=== PATIENT | female | born 1930 | race Caucasian/White ===

== ENCOUNTER → 2016-08-14 | Outpatient (CLI) | payer MEDICARE, OTHER ==
[~2016-08-14] MED LIST: ADVAIR INH; GABA-826 PO; HYDR1TAB12 PO; IPRA4AER INH; PREG25CA PO
== END | disposition home or self-care (01) ==
LOC: RAD 16:20
PROVIDERS: ATTEND Family Medicine
DX: R22.41 Localized swelling, mass and lump, right lower limb (principal)

== ENCOUNTER → 2017-03-27 | Outpatient (CLI) | payer MEDICARE, OTHER | LOC: RAD 12:00 | PROVIDERS: ATTEND Family Medicine | DX: M21.379 Foot drop, unspecified foot (principal); M41.86 Other forms of scoliosis, lumbar region; M51.36 Other intervertebral disc degeneration, lumbar region | CPT/HCPCS: 72148 ==

== ENCOUNTER → 2017-09-04 | Outpatient (CLI) | payer MEDICARE, OTHER | END | disposition home or self-care (01) | LOC: CFH 14:15 | PROVIDERS: ATTEND Physician Assistant | DX: M50.023 Cervical disc disorder at C6-C7 level with myelopathy (principal); D18.09 Hemangioma of other sites; M43.8X4 Other specified deforming dorsopathies, thoracic region; M51.34 Other intervertebral disc degeneration, thoracic region; M47.892 Other spondylosis, cervical region | CPT/HCPCS: 72125; 72146 ==

== ENCOUNTER 2017-10-30 09:55 | Inpatient (IN) | payer MEDICARE, OTHER ==
[~2017-10-30] VITALS: Ht 157.5 cm; Wt 65.1 kg
[2017-10-30] MEDS ORDERED: SODIUM CHLORIDE FLUSH 10ML SYR IVF ONE (10:30)
[2017-10-30] MEDS ORDERED: ACETAMINOPHEN 325 MG TABLET PO ONE (10:30)
[2017-10-30] MEDS ORDERED: CEFTRIAXONE 1,000 MG in SODIUM CHLORIDE 0.9% 50 ML IVPB ONE (10:30)
[2017-10-30] MEDS ORDERED: ACETAMINOPHEN 650 MG SUPP ONE ×2 (10:37→17:16)
[2017-10-30] MEDS ORDERED: CEFTRIAXONE PMX 1GM/50ML 50 ML ONE (10:38)
[2017-10-30 10:56] LABS: BASOPHILS # (AUTO) 0.01 x10^3/uL (0-0.1); BASOPHILS % (AUTO) 0 % (0-1); EOSINOPHILS # (AUTO) 0.01 x10^3/uL (0-0.4); EOSINOPHILS % (AUTO) 0 % (1-7); LYMPHOCYTES # (AUTO) 0.28 x10^3/uL (1-3.4); LYMPHOCYTES % (AUTO) 3 % (22-44); MD NO; MEAN CORPUSCULAR HEMOGLOBIN 30.9 pg (27.0-34.8); MEAN CORPUSCULAR HGB CONC 33.3 g/dL (32.4-35.8); MEAN CORPUSCULAR VOLUME 92.8 fL (80-100); MEAN PLATELET VOLUME 7.3 fL (7.4-10.4); MONOCYTES # (AUTO) 0.79 x10^3/uL (0.2-0.8); MONOCYTES % (AUTO) 9 % (2-9); NEUTROPHILS # (AUTO) 7.49 x10^3/uL (1.8-6.8); NEUTROPHILS % (AUTO) 87 % (42-75); PLATELET COUNT 224 x10^3/uL (130-400); RED BLOOD COUNT 4.43 x10^6/uL (3.82-5.3); RED CELL DISTRIBUTION WIDTH 14.4 % (9.6-15.2)
[2017-10-30] MEDS ORDERED: SODIUM CHLORIDE 0.9% 1,000ML IVBOLUS ONE (11:00)
[2017-10-30 11:05] LABS: ALANINE AMINOTRANSFERASE 17 U/L (12-78); ALBUMIN 3.1 g/dL (3.4-5.0); ANION GAP 7 mmol/L (5-15); CALCIUM 7.7 mg/dL (8.5-10.1); CHLORIDE 110 mmol/L (98-107); CREATININE 0.93 mg/dL (0.55-1.02)
[2017-10-30 11:07] LABS: ALKALINE PHOSPHATASE 54 U/L (45-117); BILIRUBIN,TOTAL 0.4 mg/dL (0.2-1.0); TOTAL PROTEIN 6.2 g/dL (6.4-8.2)
[2017-10-30] MEDS ORDERED: ASPI81TA50 PO (11:13)
[2017-10-30] MEDS ORDERED: IBUP-1222 PO (11:13)
[2017-10-30] MEDS ORDERED: ACETAMINOPHEN 650 MG SUPP PR PRN (11:30)
[2017-10-30] MEDS ORDERED: IBUPROFEN 600 MG TABLET PO PRN (12:30)
[2017-10-30] MEDS ORDERED: VANCOMYCIN PER PHARMACY MC PRN (12:30)
[2017-10-30] MEDS ORDERED: GUAIFENESIN/DM 200-20MG, 10ML UDC PO PRN (12:30)
[2017-10-30] MEDS ORDERED: ACETAMINOPHEN 325 MG TABLET PO PRN (12:30)
[2017-10-30] MEDS ORDERED: PROMETHAZINE 25 MG/ML, 1ML IM PRN (12:30)
[2017-10-30] MEDS ORDERED: ONDANSETRON ODT 4 MG PO PRN (12:30)
[2017-10-30] MEDS ORDERED: ALBUTEROL SULFATE 2.5 MG/3 ML ONE (13:49)
[2017-10-30 14:53] VITALS: BP 113/64
[2017-10-30] MEDS: HEPARIN 5,000 UNITS/ML, 1ML SQ SCH (15:04)
[2017-10-30] MEDS: SODIUM CHLORIDE 0.9% 1,000 ML IV SCH (15:04)
[2017-10-30 15:10] VITALS: BP 113/64
[2017-10-30] MEDS: PIPERACILLIN/TAZO/PMX 3.375GM 50 ML IV SCH ×2 (15:26→21:53)
[2017-10-30] MEDS ORDERED: PHARMACOKINETIC CONSULTATION MC ONE (15:30)
[2017-10-30] MEDS ORDERED: ALBUTEROL/IPRATROPIUM 2.5MG/0.5MG, 3 ML NPPB SCH (15:30)
[2017-10-30] MEDS ORDERED: PHARMACOKINETIC MONITORING MC PRN (15:30)
[2017-10-30] MEDS ORDERED: VANCOMYCIN PMX 1GM/200ML 200 ML IVPB SCH (16:00)
[2017-10-30] MEDS ORDERED: ACETAMINOPHEN 650 MG SUPP PR ONE (17:30)
[2017-10-30 18:52] VITALS: BP 119/64
[2017-10-30] MEDS: ALBUTEROL/IPRATROPIUM 2.5MG/0.5MG, 3 ML NPPB SCH (20:00)
[2017-10-31 02:00] VITALS: BP 115/74
[2017-10-31] MEDS: PIPERACILLIN/TAZO/PMX 3.375GM 50 ML IV SCH ×4 (03:32→21:11)
[2017-10-31] MEDS: HEPARIN 5,000 UNITS/ML, 1ML SQ SCH ×2 (03:33→17:52)
[2017-10-31 05:42] LABS: BASOPHILS # (AUTO) 0.01 x10^3/uL (0-0.1); BASOPHILS % (AUTO) 0 % (0-1); EOSINOPHILS # (AUTO) 0.01 x10^3/uL (0-0.4); EOSINOPHILS % (AUTO) 0 % (1-7); LYMPHOCYTES % (AUTO) 8 % (22-44); MD NO; MEAN CORPUSCULAR HEMOGLOBIN 30.8 pg (27.0-34.8); MEAN CORPUSCULAR HGB CONC 32.6 g/dL (32.4-35.8); MEAN CORPUSCULAR VOLUME 94.7 fL (80-100); MEAN PLATELET VOLUME 7.5 fL (7.4-10.4); MONOCYTES # (AUTO) 0.84 x10^3/uL (0.2-0.8); MONOCYTES % (AUTO) 6 % (2-9); NEUTROPHILS # (AUTO) 11.35 x10^3/uL (1.8-6.8); NEUTROPHILS % (AUTO) 86 % (42-75); PLATELET COUNT 187 x10^3/uL (130-400); RED BLOOD COUNT 4.66 x10^6/uL (3.82-5.3); RED CELL DISTRIBUTION WIDTH 14.7 % (9.6-15.2)
[2017-10-31 05:47] LABS: ANION GAP 8 mmol/L (5-15); CALCIUM 7.8 mg/dL (8.5-10.1); CHLORIDE 114 mmol/L (98-107); CREATININE 0.73 mg/dL (0.55-1.02)
[2017-10-31] MEDS: ALBUTEROL/IPRATROPIUM 2.5MG/0.5MG, 3 ML NPPB SCH ×4 (07:00→20:00)
[2017-10-31 08:05] VITALS: BP 124/70
[2017-10-31] MEDS: SODIUM CHLORIDE 0.9% 1,000 ML IV SCH (09:00)
[2017-10-31] MEDS: ASPIRIN 81 MG TABLET EC PO SCH (09:57)
[2017-10-31 15:50] VITALS: BP 125/74
[2017-10-31 19:30] VITALS: BP 131/77
[2017-11-01 01:25] VITALS: BP 129/64
[2017-11-01] MEDS: SODIUM CHLORIDE 0.9% 1,000 ML IV SCH (01:40)
[2017-11-01] MEDS: PIPERACILLIN/TAZO/PMX 3.375GM 50 ML IV SCH ×2 (04:56→12:23)
[2017-11-01] MEDS: HEPARIN 5,000 UNITS/ML, 1ML SQ SCH (05:08)
[2017-11-01 07:45] VITALS: BP 129/81
[2017-11-01] MEDS: ALBUTEROL/IPRATROPIUM 2.5MG/0.5MG, 3 ML NPPB SCH ×2 (08:07→11:35)
[2017-11-01 08:45] LABS: MEAN CORPUSCULAR HEMOGLOBIN 30.6 pg (27.0-34.8); MEAN CORPUSCULAR HGB CONC 32.8 g/dL (32.4-35.8); MEAN CORPUSCULAR VOLUME 93.3 fL (80-100); MEAN PLATELET VOLUME 7.4 fL (7.4-10.4); PLATELET COUNT 193 x10^3/uL (130-400); RED BLOOD COUNT 4.38 x10^6/uL (3.82-5.3); RED CELL DISTRIBUTION WIDTH 14.4 % (9.6-15.2)
[2017-11-01 09:00] LABS: BASOPHILS # (AUTO) 0.05 x10^3/uL (0-0.1); BASOPHILS % (AUTO) 0 % (0-1); EOSINOPHILS % (AUTO) 1 % (1-7); LYMPHOCYTES # (AUTO) 1.13 x10^3/uL (1-3.4); LYMPHOCYTES % (AUTO) 9 % (22-44); MD SCAN; MONOCYTES % (AUTO) 6 % (2-9); NEUTROPHILS # (AUTO) 10.99 x10^3/uL (1.8-6.8); NEUTROPHILS % (AUTO) 84 % (42-75)
[2017-11-01] MEDS: ASPIRIN 81 MG TABLET EC PO SCH (09:34)
[2017-11-01] MEDS ORDERED: LACT1CAP35 PO (10:53)
[2017-11-01] MEDS ORDERED: AMOX1TAB64 PO (10:53)
[2017-11-01 13:17] VITALS: BP 132/72
== END 2017-11-01 14:35 | disposition still patient (30) | DRG 871 ==
LOC: ED 10:48 → EDIP 11:50 → 4WST 15:01
PROVIDERS: ADMIT Internal Medicine; ATTEND Internal Medicine
DX: A41.9 Sepsis, unspecified organism (principal); J69.0 Pneumonitis due to inhalation of food and vomit; J96.21 Acute and chronic respiratory failure with hypoxia; J45.909 Unspecified asthma, uncomplicated; M19.90 Unspecified osteoarthritis, unspecified site; R65.20 Severe sepsis without septic shock; Z66 Do not resuscitate; Z88.2 Allergy status to sulfonamides
CPT/HCPCS: 36415; 36600; 71045; 80048; 80053; 82308; 82803; 83605; 85025; 87040; 93005; 94640; 96365; 99291; G0378; J0696; J1644; J2543; J3370; J7620; J7030

== ENCOUNTER → 2017-11-22 | Outpatient (CLI) | payer MEDICARE, OTHER ==
[~2017-11-22] MED LIST changes: +AMOX1TAB64 PO; +ASPI81TA50 PO; +IBUP-1222 PO; +LACT1CAP35 PO
[2017-11-22 08:46] LABS: BASOPHILS # (AUTO) 0.07 x10^3/uL (0-0.1); BASOPHILS % (AUTO) 1 % (0-1); EOSINOPHILS # (AUTO) 0.51 x10^3/uL (0-0.4); EOSINOPHILS % (AUTO) 7 % (1-7); LYMPHOCYTES # (AUTO) 1.17 x10^3/uL (1-3.4); LYMPHOCYTES % (AUTO) 16 % (22-44); MD NO; MEAN CORPUSCULAR HEMOGLOBIN 30.7 pg (27.0-34.8); MEAN CORPUSCULAR HGB CONC 33.3 g/dL (32.4-35.8); MEAN CORPUSCULAR VOLUME 92.1 fL (80-100); MEAN PLATELET VOLUME 6.9 fL (7.4-10.4); MONOCYTES # (AUTO) 0.65 x10^3/uL (0.2-0.8); MONOCYTES % (AUTO) 9 % (2-9); NEUTROPHILS # (AUTO) 5.06 x10^3/uL (1.8-6.8); NEUTROPHILS % (AUTO) 68 % (42-75); PLATELET COUNT 310 x10^3/uL (130-400); RED CELL DISTRIBUTION WIDTH 14.1 % (9.6-15.2)
[2017-11-22 08:52] LABS: ALANINE AMINOTRANSFERASE 18 U/L (12-78); ALBUMIN 3.4 g/dL (3.4-5.0); ANION GAP 9 mmol/L (5-15); CALCIUM 9.1 mg/dL (8.5-10.1); CHLORIDE 95 mmol/L (98-107); CHOLESTEROL, TOTAL 242 mg/dL (140-239); CREATININE 0.77 mg/dL (0.55-1.02); TRIGLYCERIDES 58 mg/dL (50-200); VLDL CHOLESTEROL 12 mg/dL (0-25)
[2017-11-22 08:54] LABS: ALKALINE PHOSPHATASE 71 U/L (45-117); BILIRUBIN,TOTAL 0.6 mg/dL (0.2-1.0); HDL CHOL % 34 % (28-40); HDL CHOLESTEROL (DIRECT) 82 mg/dL (40-60); LDL CHOLESTEROL,CALCULATED 148 mg/dL (54-169); LDL/HDL RATIO 1.8 (0.5-3.0); TOTAL PROTEIN 7.1 g/dL (6.4-8.2)
== END | disposition home or self-care (01) ==
LOC: LAB 08:22
PROVIDERS: ATTEND Family Medicine
DX: I10 Essential (primary) hypertension (principal); D72.829 Elevated white blood cell count, unspecified
CPT/HCPCS: 36415; 80053; 80061; 82043; 85025

== ENCOUNTER 2018-07-17 10:41 | Outpatient (CLI) | payer MEDICARE, OTHER ==
[~2018-07-17 10:41] MED LIST changes: +ALBU18HF INH; +CALCIUM PO; +CEFD300C37 PO; +CHOL100011 PO; +DENO60DI IM; +DOXY100T10 PO; -HYDR1TAB12 PO; +HYDR1TAB13 PO; +TRAZ-137 PO
== END 2018-07-17 23:59 | disposition home or self-care (01) ==
LOC: RAD 10:41
PROVIDERS: ATTEND Family Medicine
DX: J44.9 Chronic obstructive pulmonary disease, unspecified (principal); J18.9 Pneumonia, unspecified organism
CPT/HCPCS: 71046

== ENCOUNTER 2019-01-20 19:19 | Inpatient (IN) | payer MEDICARE, OTHER ==
[~2019-01-20] VITALS: Ht 157.5 cm; Wt 75.7 kg
[~2019-01-20 19:19] MED LIST changes: -DOXY100T10 PO; +DOXY100T23 PO
[2019-01-20] MEDS ORDERED: MAGNESIUM SULFATE PMX 2GM/50ML 50 ML IVPB ONE (20:00)
[2019-01-20] MEDS ORDERED: AZITHROMYCIN 500 MG in SODIUM CHLORIDE 0.9% 250 ML IVPB ONE (20:00)
[2019-01-20] MEDS ORDERED: CEFTRIAXONE PMX 1GM/50ML 50 ML IVPB ONE (20:00)
[2019-01-20] MEDS ORDERED: ALBUTEROL/IPRATROPIUM 2.5MG/0.5MG, 3 ML ONE (20:09)
[2019-01-20] MEDS: ALBUTEROL/IPRATROPIUM 2.5MG/0.5MG, 3 ML NPPB SCH (20:15)
[2019-01-20] MEDS ORDERED: CEFTRIAXONE PMX 1GM/50ML 50 ML ONE (20:33)
[2019-01-20] MEDS ORDERED: MAGNESIUM SULFATE PMX 2GM/50ML 50 ML ONE (20:33)
[2019-01-20 20:42] LABS: MEAN CORPUSCULAR HEMOGLOBIN 31.1 pg (27.0-34.8); MEAN CORPUSCULAR HGB CONC 32.3 g/dL (32.4-35.8); MEAN CORPUSCULAR VOLUME 96.5 fL (80-100); PLATELET COUNT 230 x10^3/uL (130-400); RED BLOOD COUNT 4.57 x10^6/uL (3.82-5.3); RED CELL DISTRIBUTION WIDTH 14.9 % (9.6-15.2)
--- NOTE | 2019-01-20 20:49 | NUR ---
Patient transferred from [facility] to 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 Attached to cardiac leads, blood pressure cuff, and pulsatile oxygen sensor. Vitals within normal limits, SpO2 at 97% on 4L nasal cannula. Patient has caregiver at bedside assisting in providing information. Patient is alert, oriented, and answers questions clearly and concisely. Patient has a coarse cough and reports feeling short of breath. Patient uses accessory muscles in neck for breathing, intermittently. Orders already placed by provider, guitar technician to bedside, and chest xray completed while RN collected peripheral intravenous catherization equipment. RN to bedside, with phlebotomy. Started peripheral IV access per protocol. Blood cultures collected x2 while RN collected medications including iv antibiotics. Patient educated on the need for iv antibiotics while physician was at bedside assessing patient.
[2019-01-20 20:54] LABS: ALBUMIN 3.3 g/dL (3.4-5.0); ANION GAP 5 mmol/L (5-15); CALCIUM 9.4 mg/dL (8.5-10.1); CHLORIDE 107 mmol/L (98-107); CREATININE 0.74 mg/dL (0.55-1.02)
[2019-01-20 20:56] LABS: BASOPHILS # (AUTO) 0.06 x10^3/uL (0-0.1); BASOPHILS % (AUTO) 0 % (0-1); EOSINOPHILS # (AUTO) 0.33 x10^3/uL (0-0.4); EOSINOPHILS % (AUTO) 2 % (1-7); LYMPHOCYTES # (AUTO) 0.75 x10^3/uL (1-3.4); LYMPHOCYTES % (AUTO) 4 % (22-44); MD SCAN; MONOCYTES # (AUTO) 0.43 x10^3/uL (0.2-0.8); MONOCYTES % (AUTO) 2 % (2-9); NEUTROPHILS # (AUTO) 16.74 x10^3/uL (1.8-6.8); NEUTROPHILS % (AUTO) 91 % (42-75)
[2019-01-20 20:58] LABS: TROPONIN I < 0.015 ng/mL (0.000-0.045)
--- NOTE | 2019-01-20 21:07 | NUR ---
Intravenous antibiotics initiated on patient (see electronic medication administration record) and steroidal antiinflammatories taken. Patient agreeable to medications in emergency room but expressing concerns over admission. Educated patient that it takes tests for the provider to make an educated decision. Patient agreeable to wait. Awaiting labs and chest xray read by radiology
[2019-01-20 21:23] LABS: RAPID INFLUENZA A Negative (Negative); RAPID INFLUENZA B Negative (Negative)
[2019-01-20] MEDS ORDERED: CEFTRIAXONE PMX 1GM/50ML 50 ML IV ONE (22:30)
[2019-01-20 22:32] VITALS: BP 111/66
[2019-01-20] MEDS ORDERED: hydrALAzine 20 MG/ML, 1ML IVPush PRN (23:00)
[2019-01-20] MEDS ORDERED: DOCUSATE 100 MG CAPSULE PO PRN (23:00)
[2019-01-20] MEDS ORDERED: POLYETHYLENE GLYCOL 17 GM PACKET PO PRN (23:00)
[2019-01-20] MEDS ORDERED: ONDANSETRON ODT 4 MG PO PRN (23:00)
[2019-01-20] MEDS ORDERED: ONDANSETRON 2MG/ML, 2ML IVPush PRN (23:00)
[2019-01-20] MEDS ORDERED: morphine SULFATE 10 MG/ML, 1ML IVPush PRN (23:00)
[2019-01-20] MEDS ORDERED: PROMETHAZINE 25 MG/ML, 1ML IM PRN (23:00)
[2019-01-20] MEDS ORDERED: BISACODYL 10 MG SUPP PR PRN (23:00)
[2019-01-20 23:12] LABS: HEMOGLOBIN A1C 6.3 % (4.2-6.3)
[2019-01-20 23:14] LABS: FREE T4 (FREE THYROXINE) 1.02 ng/dL (0.76-1.46)
[2019-01-20] MEDS: GUAIFENESIN ER 600 MG TABLET PO SCH (23:59)
[2019-01-21] MEDS: ENOXAPARIN 40 MG/0.4 ML SQ SCH
[2019-01-21 01:06] VITALS: BP 159/97
[2019-01-21] MEDS: ALBUTEROL SULFATE 2.5 MG/3 ML NPPB PRN ×3 (02:55→19:27)
[2019-01-21 02:58] LABS: MICROSCOPIC AUTO
[2019-01-21] MEDS: TRAZODONE 100MG TABLET PO PRN (03:06)
[2019-01-21] MEDS: ACETAMINOPHEN 325 MG TABLET PO PRN (03:07)
[2019-01-21 03:10] LABS: CULTURE INDICATED? YES
[2019-01-21] MEDS: methylPREDNISolone SOD SUCC 125 MG/2 ML IVPush SCH ×4 (05:36→17:04)
[2019-01-21 06:19] LABS: CHLORIDE 110 mmol/L (98-107)
[2019-01-21 06:21] LABS: MEAN CORPUSCULAR HEMOGLOBIN 30.9 pg (27.0-34.8); MEAN CORPUSCULAR HGB CONC 32.1 g/dL (32.4-35.8); MEAN CORPUSCULAR VOLUME 96.4 fL (80-100); MEAN PLATELET VOLUME 8.3 fL (7.4-10.4); PLATELET COUNT 212 x10^3/uL (130-400); RED BLOOD COUNT 4.53 x10^6/uL (3.82-5.3); RED CELL DISTRIBUTION WIDTH 14.8 % (9.6-15.2)
[2019-01-21 06:28] LABS: ALANINE AMINOTRANSFERASE 26 U/L (12-78); ALKALINE PHOSPHATASE 70 U/L (45-117); ANION GAP 6 mmol/L (5-15); BILIRUBIN,TOTAL 0.8 mg/dL (0.2-1.0); CALCIUM 8.9 mg/dL (8.5-10.1); CHOL/HDL RATIO 3.1; CHOLESTEROL, TOTAL 209 mg/dL (140-239); CREATININE 0.72 mg/dL (0.55-1.02); HDL CHOL % 32 % (28-40); HDL CHOLESTEROL (DIRECT) 67 mg/dL (40-60); LDL CHOLESTEROL,CALCULATED 133 mg/dL (54-169); TOTAL PROTEIN 6.7 g/dL (6.4-8.2); TRIGLYCERIDES 46 mg/dL (50-200); VLDL CHOLESTEROL 9 mg/dL (0-25)
[2019-01-21 06:57] LABS: MD YES
[2019-01-21 07:14] LABS: BANDS%(MANUAL) 12 % (0-7); LYMPH#(MANUAL) 0.45 x10^3/uL (1-3.4); LYMPHS% (MANUAL) 2 % (22-44); MONOS#(MANUAL) 1.13 x10^3/uL (0.3-2.7); MONOS% (MANUAL) 5 % (2-9); SEG#(MANUAL) 18.23 x10^3/uL (1.8-6.8); SEGS% (MANUAL) 81 % (42-75)
[2019-01-21 07:15] LABS: <PLATELET ESTIMATE> ADEQUATE; <PLT MORPHOLOGY> NORMAL PLT MORPH; <RBC MORPHOLOGY> NORMAL
[2019-01-21 07:35] LABS: BASOPHILS % (AUTO) 0 % (0-1); EOSINOPHILS % (AUTO) 0 % (1-7); LYMPHOCYTES # (AUTO) 0.25 x10^3/uL (1-3.4); LYMPHOCYTES % (AUTO) 1 % (22-44); MONOCYTES # (AUTO) 0.99 x10^3/uL (0.2-0.8); MONOCYTES % (AUTO) 4 % (2-9); NEUTROPHILS # (AUTO) 21.22 x10^3/uL (1.8-6.8); NEUTROPHILS % (AUTO) 95 % (42-75)
[2019-01-21 08:00] VITALS: BP 107/56
[2019-01-21] MEDS ORDERED: DOXYCYCLINE 100MG TABLET PO SCH (09:00)
[2019-01-21] MEDS: GUAIFENESIN ER 600 MG TABLET PO SCH ×2 (09:14→21:00)
[2019-01-21] MEDS ORDERED: SODIUM CHLORIDE 0.9% 1,000 ML IV SCH (11:00)
[2019-01-21 12:52] VITALS: BP 110/69
[2019-01-21] MEDS ORDERED: OMNIPAQUE 350 MG/ML, 100ML BOTTLE ONE (15:33)
[2019-01-21] MEDS ORDERED: PIPERACILLIN/TAZO/PMX 3.375GM 50 ML IV SCH (16:00)
[2019-01-21] MEDS ORDERED: VANCOMYCIN PER PHARMACY MC PRN (16:00)
[2019-01-21] MEDS ORDERED: VANCOMYCIN 1,000 MG in SODIUM CHLORIDE 0.9% 100 ML IV SCH (17:00)
[2019-01-21] MEDS ORDERED: PHARMACOKINETIC CONSULTATION MC ONE (17:00)
[2019-01-21] MEDS ORDERED: PHARMACOKINETIC MONITORING MC PRN (17:00)
[2019-01-21] MEDS: PIPERACILLIN/TAZO/PMX 2.25GM 50 ML IVPB SCH ×2 (17:04→23:34)
[2019-01-21 18:14] VITALS: BP 92/57
[2019-01-21] MEDS: VANCOMYCIN PMX 1GM/200ML 200 ML IV SCH (18:46)
[2019-01-21] MEDS ORDERED: CEFTRIAXONE PMX 2GM/50ML 50 ML IV SCH (20:00)
[2019-01-21 20:24] VITALS: BP 100/47
[2019-01-21] MEDS ORDERED: FENTANYL PF 100 MCG/2ML ONE (22:33)
[2019-01-21] MEDS ORDERED: PROPOFOL 100 ML IV PRN (22:49)
[2019-01-21] MEDS: ALBUTEROL/IPRATROPIUM 2.5MG/0.5MG, 3 ML INLINE SCH (23:00)
[2019-01-21] MEDS ORDERED: DEXTROSE 4 GM TAB.CHEW PO PRN (23:00)
[2019-01-21] MEDS ORDERED: ROCURONIUM 10MG/ML,5ML ONE (23:00)
[2019-01-21] MEDS ORDERED: LIDOCAINE-MPF 1%, 2ML ENDO PRN (23:00)
[2019-01-21] MEDS ORDERED: DEXTROSE 50%, 50ML SYRINGE IVPush PRN (23:00)
[2019-01-21] MEDS ORDERED: ETOMIDATE 20 MG/10 ML ONE (23:00)
[2019-01-21] MEDS ORDERED: GLUCAGON 1 MG IM PRN (23:00)
[2019-01-21] MEDS ORDERED: BISACODYL 10 MG SUPP PR PRN (23:00)
[2019-01-21] MEDS ORDERED: LACTULOSE 20 GM/30 ML UDC NG PRN (23:00)
[2019-01-21] MEDS ORDERED: PROPOFOL 10 MG/ML, 100ML IV ONE (23:00)
[2019-01-21] MEDS ORDERED: FENTANYL PF 100 MCG/2ML IVPush PRN (23:00)
[2019-01-21] MEDS ORDERED: SODIUM CHLORIDE 0.9% 1,000ML IV SCH (23:00)
[2019-01-21] MEDS ORDERED: SENNA/DOCUSATE TABLET NG PRN (23:00)
[2019-01-21] MEDS ORDERED: PHARMACY MAY ADJ FOR RENAL FX MC SCH (23:00)
[2019-01-21] MEDS ORDERED: SENNA 176 MG/5 ML ORAL SOL NG PRN (23:00)
[2019-01-21] MEDS ORDERED: AMIODARONE 150 MG in DEXTROSE 5% 100 ML IV ONE (23:30)
[2019-01-21] MEDS ORDERED: FILTER 0.22 MICRON IV PRN (23:30)
[2019-01-21] MEDS ORDERED: AMIODARONE 900 MG in DEXTROSE 5% 482 ML IV PRN (23:30)
[2019-01-22] MEDS: ENOXAPARIN 40 MG/0.4 ML SQ SCH ×2 (00:01→23:57)
[2019-01-22] MEDS: methylPREDNISolone SOD SUCC 125 MG/2 ML IVPush SCH ×5 (00:02→23:56)
[2019-01-22] MEDS ORDERED: MIDAZOLAM 1 MG/ML, 5ML IVPush PRN (01:30)
[2019-01-22] MEDS ORDERED: SODIUM CHLORIDE 0.9%, 500ML IVBOLUS ONE ×3 (01:30→18:30)
[2019-01-22] MEDS: ALBUTEROL/IPRATROPIUM 2.5MG/0.5MG, 3 ML INLINE SCH ×6 (02:45→22:17)
[2019-01-22] MEDS ORDERED: METOPROLOL 1 MG/ML, 5ML IVPush PRN ×2 (04:00)
[2019-01-22] MEDS: PIPERACILLIN/TAZO/PMX 2.25GM 50 ML IVPB SCH ×3 (04:20→18:11)
[2019-01-22] MEDS ORDERED: NOREPINEPHRINE 1 MG/ML, 4ML ONE (04:41)
[2019-01-22] MEDS: NOREPINEPHRINE 4 MG in SODIUM CHLORIDE 0.9% 246 ML IV PRN ×2 (04:45→22:02)
[2019-01-22 05:11] LABS: MEAN CORPUSCULAR HEMOGLOBIN 30.7 pg (27.0-34.8); MEAN CORPUSCULAR HGB CONC 31.7 g/dL (32.4-35.8); MEAN CORPUSCULAR VOLUME 96.6 fL (80-100); MEAN PLATELET VOLUME 8.5 fL (7.4-10.4); PLATELET COUNT 183 x10^3/uL (130-400); RED BLOOD COUNT 4.15 x10^6/uL (3.82-5.3); RED CELL DISTRIBUTION WIDTH 15.1 % (9.6-15.2)
[2019-01-22 05:15] LABS: ALANINE AMINOTRANSFERASE 22 U/L (12-78); ALBUMIN 2.1 g/dL (3.4-5.0); ANION GAP 10 mmol/L (5-15); CALCIUM 7.8 mg/dL (8.5-10.1); CHLORIDE 114 mmol/L (98-107); CREATININE 1.18 mg/dL (0.55-1.02)
[2019-01-22 05:20] LABS: ALKALINE PHOSPHATASE 36 U/L (45-117); BILIRUBIN,TOTAL 0.6 mg/dL (0.2-1.0); TOTAL PROTEIN 5.6 g/dL (6.4-8.2); TROPONIN I 0.018 ng/mL (0.000-0.045)
[2019-01-22 05:50] LABS: MD YES
[2019-01-22 05:55] LABS: <PLATELET ESTIMATE> ADEQUATE; <PLT MORPHOLOGY> NORMAL PLT MORPH; <RBC MORPHOLOGY> NORMAL; BAND#(MANUAL) 6.64 x10^3/uL; BANDS%(MANUAL) 44 % (0-7); LYMPH#(MANUAL) 1.36 x10^3/uL (1-3.4); LYMPHS% (MANUAL) 9 % (22-44); METAMYELOCYTES# (MANUAL) 1.36 x10^3/uL (0-0); METAMYELOCYTES% (MANUAL) 9 % (0-1); MONOS#(MANUAL) 0.91 x10^3/uL (0.3-2.7); MONOS% (MANUAL) 6 % (2-9); PMNS WITH VACUOLES 1+; SEG#(MANUAL) 4.83 x10^3/uL (1.8-6.8); SEGS% (MANUAL) 32 % (42-75)
[2019-01-22] MEDS: INSULIN LISPRO 100 UNITS/ML, PEN SQ-INSULIN SCH ×4 (06:47→20:56)
--- NOTE | 2019-01-22 11:59 | NUR ---
TF GOAL if needed: w/ propofol: PROMOTE @ 50ml/hr off propofol: 55ml/hr
[2019-01-22] MEDS: GUAIFENESIN ER 600 MG TABLET PO SCH ×2 (12:54→20:56)
[2019-01-22] MEDS: SODIUM CHLORIDE FLUSH 10ML SYR IVF SCH ×2 (12:55→20:56)
[2019-01-22] MEDS: VANCOMYCIN PMX 1GM/200ML 200 ML IV SCH (16:19)
[2019-01-22] MEDS ORDERED: ALBUMIN HUMAN 25% 100 ML IV ONE (16:30)
[2019-01-22] MEDS ORDERED: ALBUMIN HUMAN 25% 200 ML IV ONE (16:30)
[2019-01-23] MEDS ORDERED: SODIUM CHLORIDE 0.9%, 500ML IVBOLUS ONE (01:00)
[2019-01-23] MEDS: PIPERACILLIN/TAZO/PMX 2.25GM 50 ML IVPB SCH ×4 (01:32→19:38)
[2019-01-23] MEDS: ALBUTEROL/IPRATROPIUM 2.5MG/0.5MG, 3 ML INLINE SCH ×3 (02:20→11:00)
[2019-01-23 06:00] LABS: ANION GAP 7 mmol/L (5-15); CALCIUM 8.7 mg/dL (8.5-10.1); CHLORIDE 115 mmol/L (98-107)
[2019-01-23] MEDS: methylPREDNISolone SOD SUCC 125 MG/2 ML IVPush SCH (06:00)
[2019-01-23 06:02] LABS: CREATININE 0.76 mg/dL (0.55-1.02)
[2019-01-23] MEDS: INSULIN LISPRO 100 UNITS/ML, PEN SQ-INSULIN SCH ×4 (07:00→21:00)
[2019-01-23] MEDS: CIPROFLOXACIN/PMX 400MG/200ML 200 ML IV SCH ×2 (09:21→21:57)
[2019-01-23] MEDS: GUAIFENESIN ER 600 MG TABLET PO SCH ×2 (09:25→21:50)
[2019-01-23] MEDS: SODIUM CHLORIDE FLUSH 10ML SYR IVF SCH ×2 (09:25→21:50)
[2019-01-23] MEDS ORDERED: POTASSIUM CHLORIDE PMX 100 ML IV ONE (10:00)
[2019-01-23] MEDS ORDERED: ALBUTEROL/IPRATROPIUM 2.5MG/0.5MG, 3 ML NPPB PRN (14:00)
[2019-01-23] MEDS: methylPREDNISolone SOD SUCC 40 MG/ML IVPush SCH ×2 (14:10→21:50)
[2019-01-23] MEDS: ALBUTEROL/IPRATROPIUM 2.5MG/0.5MG, 3 ML NPPB SCH ×3 (15:34→19:30)
[2019-01-23] MEDS: ENOXAPARIN 40 MG/0.4 ML SQ SCH (22:09)
[2019-01-24] MEDS: PIPERACILLIN/TAZO/PMX 2.25GM 50 ML IVPB SCH ×4 (00:31→21:13)
[2019-01-24 05:34] LABS: ANION GAP 5 mmol/L (5-15); CALCIUM 9.4 mg/dL (8.5-10.1); CHLORIDE 115 mmol/L (98-107)
[2019-01-24 05:38] LABS: CREATININE 0.56 mg/dL (0.55-1.02); TRIGLYCERIDES 164 mg/dL (50-200)
[2019-01-24] MEDS: methylPREDNISolone SOD SUCC 40 MG/ML IVPush SCH ×2 (06:47→15:00)
[2019-01-24] MEDS: INSULIN LISPRO 100 UNITS/ML, PEN SQ-INSULIN SCH ×4 (07:00→21:32)
[2019-01-24] MEDS: ALBUTEROL/IPRATROPIUM 2.5MG/0.5MG, 3 ML NPPB SCH ×4 (07:47→22:00)
[2019-01-24] MEDS: ACETAMINOPHEN 325 MG TABLET PO PRN (07:58)
[2019-01-24] MEDS ORDERED: POTASSIUM CHLORIDE 10% 20 MEQ/15 ML UDC NG ONE (09:00)
[2019-01-24] MEDS: GUAIFENESIN ER 600 MG TABLET PO SCH ×2 (10:11→21:28)
[2019-01-24] MEDS: CIPROFLOXACIN/PMX 400MG/200ML 200 ML IV SCH ×2 (10:12→22:05)
[2019-01-24] MEDS: SODIUM CHLORIDE FLUSH 10ML SYR IVF SCH ×2 (10:15→21:28)
[2019-01-24] MEDS: NEUTRA PHOS K 250 MG TABLET PO SCH ×2 (15:00→21:28)
[2019-01-24 16:58] VITALS: BP 149/92
[2019-01-24 17:38] VITALS: BP 174/82
[2019-01-24 17:50] VITALS: BP 150/85
[2019-01-24] MEDS: METOPROLOL TARTRATE 25 MG TABLET PO SCH (17:58)
[2019-01-24 18:57] VITALS: BP 142/87
[2019-01-24] MEDS: TRAZODONE 100MG TABLET PO PRN (22:04)
[2019-01-24] MEDS ORDERED: DIPHENHYDRAMINE 25 MG CAPSULE PO ONE (23:25)
[2019-01-24] MEDS: ENOXAPARIN 40 MG/0.4 ML SQ SCH (23:45)
[2019-01-25] MEDS: PIPERACILLIN/TAZO/PMX 2.25GM 50 ML IVPB SCH ×4 (03:15→20:22)
[2019-01-25] MEDS: methylPREDNISolone SOD SUCC 40 MG/ML IVPush SCH ×2 (03:31→15:14)
[2019-01-25] MEDS: METOPROLOL TARTRATE 25 MG TABLET PO SCH ×2 (06:00→18:02)
[2019-01-25 06:20] LABS: MEAN CORPUSCULAR HEMOGLOBIN 30.5 pg (27.0-34.8); MEAN CORPUSCULAR HGB CONC 31.5 g/dL (32.4-35.8); MEAN CORPUSCULAR VOLUME 96.8 fL (80-100); MEAN PLATELET VOLUME 9.4 fL (7.4-10.4); PLATELET COUNT 145 x10^3/uL (130-400); RED BLOOD COUNT 3.98 x10^6/uL (3.82-5.3); RED CELL DISTRIBUTION WIDTH 15.2 % (9.6-15.2)
[2019-01-25 06:21] VITALS: BP 126/65
[2019-01-25 06:27] LABS: ANION GAP 6 mmol/L (5-15); CHLORIDE 115 mmol/L (98-107)
[2019-01-25 06:34] LABS: MD YES
[2019-01-25 06:36] LABS: <PLATELET ESTIMATE> ADEQUATE; <PLT MORPHOLOGY> NORMAL PLT MORPH; <RBC MORPHOLOGY> NORMAL; BAND#(MANUAL) 1.34 x10^3/uL; BANDS%(MANUAL) 8 % (0-7); LYMPH#(MANUAL) 0.84 x10^3/uL (1-3.4); LYMPHS% (MANUAL) 5 % (22-44); MONOS#(MANUAL) 1.18 x10^3/uL (0.3-2.7); MONOS% (MANUAL) 7 % (2-9); SEG#(MANUAL) 13.44 x10^3/uL (1.8-6.8); SEGS% (MANUAL) 80 % (42-75)
[2019-01-25] MEDS: INSULIN LISPRO 100 UNITS/ML, PEN SQ-INSULIN SCH ×4 (07:00→21:00)
[2019-01-25] MEDS: ALBUTEROL/IPRATROPIUM 2.5MG/0.5MG, 3 ML NPPB SCH ×4 (07:30→20:49)
[2019-01-25] MEDS: NEUTRA PHOS K 250 MG TABLET PO SCH ×2 (09:32→20:22)
[2019-01-25] MEDS: SODIUM CHLORIDE FLUSH 10ML SYR IVF SCH ×2 (09:33→20:22)
[2019-01-25] MEDS: GUAIFENESIN ER 600 MG TABLET PO SCH ×2 (09:33→20:22)
[2019-01-25] MEDS: CIPROFLOXACIN/PMX 400MG/200ML 200 ML IV SCH ×2 (10:33→22:20)
[2019-01-25 12:09] VITALS: BP 150/82
[2019-01-25] MEDS: ACETAMINOPHEN 325 MG TABLET PO PRN (16:59)
[2019-01-25 20:09] VITALS: BP 142/81
[2019-01-25] MEDS: OXYcodone IR 5MG TABLET PO PRN (22:20)
[2019-01-25] MEDS: ENOXAPARIN 40 MG/0.4 ML SQ SCH (23:23)
[2019-01-26 00:27] VITALS: BP 162/87
[2019-01-26] MEDS: methylPREDNISolone SOD SUCC 40 MG/ML IVPush SCH ×2 (04:27→15:14)
[2019-01-26] MEDS: PIPERACILLIN/TAZO/PMX 2.25GM 50 ML IVPB SCH ×3 (04:27→15:14)
[2019-01-26] MEDS: METOPROLOL TARTRATE 25 MG TABLET PO SCH ×2 (05:17→17:15)
[2019-01-26 05:44] LABS: CHLORIDE 114 mmol/L (98-107)
[2019-01-26 05:51] LABS: ALBUMIN 2.1 g/dL (3.4-5.0); CALCIUM 8.9 mg/dL (8.5-10.1); CREATININE 0.61 mg/dL (0.55-1.02)
[2019-01-26 06:25] LABS: MD YES; MEAN CORPUSCULAR HEMOGLOBIN 30.2 pg (27.0-34.8); MEAN CORPUSCULAR VOLUME 94.4 fL (80-100); MEAN PLATELET VOLUME 9.5 fL (7.4-10.4); PLATELET COUNT 139 x10^3/uL (130-400); RED BLOOD COUNT 4.01 x10^6/uL (3.82-5.3); RED CELL DISTRIBUTION WIDTH 14.9 % (9.6-15.2)
[2019-01-26 06:27] LABS: ANION GAP 6 mmol/L (5-15); BANDS%(MANUAL) 4 % (0-7); LYMPH#(MANUAL) 0.37 x10^3/uL (1-3.4); LYMPHS% (MANUAL) 3 % (22-44); MONOS#(MANUAL) 1.24 x10^3/uL (0.3-2.7); MONOS% (MANUAL) 10 % (2-9); SEG#(MANUAL) 10.29 x10^3/uL (1.8-6.8); SEGS% (MANUAL) 83 % (42-75)
[2019-01-26 06:28] LABS: <RBC MORPHOLOGY> NORMAL
[2019-01-26 06:29] LABS: <PLATELET ESTIMATE> ADEQUATE; <PLT MORPHOLOGY> NORMAL PLT MORPH
[2019-01-26] MEDS: INSULIN LISPRO 100 UNITS/ML, PEN SQ-INSULIN SCH ×4 (07:00→20:38)
[2019-01-26] MEDS: ALBUTEROL/IPRATROPIUM 2.5MG/0.5MG, 3 ML NPPB SCH ×4 (07:12→20:00)
[2019-01-26 07:19] VITALS: BP 148/84
[2019-01-26] MEDS: NEUTRA PHOS K 250 MG TABLET PO SCH ×2 (08:31→20:24)
[2019-01-26] MEDS: GUAIFENESIN ER 600 MG TABLET PO SCH ×2 (08:31→20:24)
[2019-01-26] MEDS: SODIUM CHLORIDE FLUSH 10ML SYR IVF SCH ×2 (08:32→20:24)
[2019-01-26] MEDS: CIPROFLOXACIN/PMX 400MG/200ML 200 ML IV SCH (09:31)
[2019-01-26 12:39] VITALS: BP 134/74
[2019-01-26] MEDS: DIPHENHYDRAMINE 50 MG/ML, 1ML IVPush PRN ×2 (16:14→22:29)
[2019-01-26 17:15] VITALS: BP 143/89
[2019-01-26 19:58] VITALS: BP 144/77
[2019-01-26] MEDS: CIPROFLOXACIN 500 MG TABLET PO SCH (20:24)
[2019-01-26] MEDS: CEFDINIR 300 MG CAPSULE PO SCH (20:24)
[2019-01-26] MEDS: ENOXAPARIN 40 MG/0.4 ML SQ SCH (22:29)
[2019-01-27 01:00] VITALS: BP 175/77
[2019-01-27] MEDS: methylPREDNISolone SOD SUCC 40 MG/ML IVPush SCH ×2 (02:38→16:27)
[2019-01-27] MEDS: OXYcodone IR 5MG TABLET PO PRN (02:38)
[2019-01-27 02:43] VITALS: BP 138/76
[2019-01-27] MEDS: METOPROLOL TARTRATE 25 MG TABLET PO SCH ×2 (05:50→16:28)
[2019-01-27 06:48] LABS: ALBUMIN 2.2 g/dL (3.4-5.0); ANION GAP 7 mmol/L (5-15); CALCIUM 8.8 mg/dL (8.5-10.1); CHLORIDE 112 mmol/L (98-107); CREATININE 0.57 mg/dL (0.55-1.02)
[2019-01-27 06:49] LABS: MEAN CORPUSCULAR HEMOGLOBIN 30.2 pg (27.0-34.8); MEAN CORPUSCULAR VOLUME 94.4 fL (80-100); MEAN PLATELET VOLUME 9.1 fL (7.4-10.4); PLATELET COUNT 189 x10^3/uL (130-400); RED BLOOD COUNT 4.44 x10^6/uL (3.82-5.3); RED CELL DISTRIBUTION WIDTH 15.3 % (9.6-15.2)
[2019-01-27] MEDS: ALBUTEROL/IPRATROPIUM 2.5MG/0.5MG, 3 ML NPPB SCH ×4 (07:19→19:22)
[2019-01-27] MEDS: INSULIN LISPRO 100 UNITS/ML, PEN SQ-INSULIN SCH ×4 (08:02→21:00)
[2019-01-27 08:19] LABS: MD YES
[2019-01-27 08:20] LABS: <PLATELET ESTIMATE> ADEQUATE; <PLT MORPHOLOGY> NORMAL PLT MORPH; <RBC MORPHOLOGY> NORMAL; BANDS%(MANUAL) 2 % (0-7); LYMPH#(MANUAL) 0.75 x10^3/uL (1-3.4); LYMPHS% (MANUAL) 5 % (22-44); METAMYELOCYTES# (MANUAL) 0.15 x10^3/uL (0-0); METAMYELOCYTES% (MANUAL) 1 % (0-1); MONOS% (MANUAL) 8 % (2-9); SEGS% (MANUAL) 84 % (42-75)
[2019-01-27] MEDS: GUAIFENESIN ER 600 MG TABLET PO SCH ×2 (08:49→20:26)
[2019-01-27] MEDS: CEFDINIR 300 MG CAPSULE PO SCH ×2 (08:49→20:26)
[2019-01-27] MEDS: SODIUM CHLORIDE FLUSH 10ML SYR IVF SCH ×2 (08:49→20:26)
[2019-01-27] MEDS: NEUTRA PHOS K 250 MG TABLET PO SCH ×2 (08:49→20:26)
[2019-01-27] MEDS: CIPROFLOXACIN 500 MG TABLET PO SCH ×2 (08:49→20:26)
[2019-01-27 09:01] VITALS: BP 115/70
[2019-01-27] MEDS: ACETAMINOPHEN 325 MG TABLET PO PRN (13:41)
[2019-01-27 15:36] VITALS: BP 122/68
[2019-01-27 16:26] VITALS: BP 150/72
[2019-01-27 20:34] VITALS: BP 153/74
[2019-01-27] MEDS: DIPHENHYDRAMINE 50 MG/ML, 1ML IVPush PRN (22:04)
[2019-01-27] MEDS: ENOXAPARIN 40 MG/0.4 ML SQ SCH (23:04)
[2019-01-28 01:00] VITALS: BP 163/84
[2019-01-28] MEDS: methylPREDNISolone SOD SUCC 40 MG/ML IVPush SCH (04:20)
[2019-01-28] MEDS: METOPROLOL TARTRATE 25 MG TABLET PO SCH (05:08)
[2019-01-28 06:50] VITALS: BP 158/87
[2019-01-28] MEDS: ALBUTEROL/IPRATROPIUM 2.5MG/0.5MG, 3 ML NPPB SCH ×3 (07:17→14:12)
[2019-01-28] MEDS: CEFDINIR 300 MG CAPSULE PO SCH (08:30)
[2019-01-28] MEDS: CIPROFLOXACIN 500 MG TABLET PO SCH (08:30)
[2019-01-28] MEDS: NEUTRA PHOS K 250 MG TABLET PO SCH (08:30)
[2019-01-28 08:31] LABS: BASOPHILS # (AUTO) 0.01 x10^3/uL (0-0.1); BASOPHILS % (AUTO) 0 % (0-1); EOSINOPHILS # (AUTO) 0.17 x10^3/uL (0-0.4); EOSINOPHILS % (AUTO) 1 % (1-7); LYMPHOCYTES # (AUTO) 0.74 x10^3/uL (1-3.4); LYMPHOCYTES % (AUTO) 5 % (22-44); MD NO; MEAN CORPUSCULAR HEMOGLOBIN 30.6 pg (27.0-34.8); MEAN CORPUSCULAR HGB CONC 31.9 g/dL (32.4-35.8); MEAN CORPUSCULAR VOLUME 95.9 fL (80-100); MONOCYTES # (AUTO) 0.09 x10^3/uL (0.2-0.8); MONOCYTES % (AUTO) 1 % (2-9); NEUTROPHILS # (AUTO) 14.94 x10^3/uL (1.8-6.8); NEUTROPHILS % (AUTO) 94 % (42-75); PLATELET COUNT 250 x10^3/uL (130-400); RED BLOOD COUNT 4.43 x10^6/uL (3.82-5.3)
[2019-01-28] MEDS: SODIUM CHLORIDE FLUSH 10ML SYR IVF SCH (08:31)
[2019-01-28] MEDS: INSULIN LISPRO 100 UNITS/ML, PEN SQ-INSULIN SCH ×2 (08:31→11:23)
[2019-01-28] MEDS: GUAIFENESIN ER 600 MG TABLET PO SCH (08:31)
[2019-01-28] MEDS ORDERED: CEFD300C37 PO (11:57)
[2019-01-28] MEDS ORDERED: CIPR500T87 PO (11:57)
== END 2019-01-28 15:47 | disposition home health service (06) | DRG 871 ==
LOC: ED 21:30 → EDIP 21:37 → ED 21:45 → 3N 22:11 → 4WST 01-21 18:00 → CCU 01-21 22:24 → 4WST 01-24 17:43 → 4EST 01-25 00:01 → DCLOUNGE 01-28 15:36
PROVIDERS: ADMIT Internal Medicine; ATTEND Family Medicine
PROC: 0B9J8ZX Drainage of Left Lower Lung Lobe, Via Natural or Artificial Opening Endoscopic, Diagnostic (ICD-10-PCS; principal; 2019-01-21)
PROC: 0BH17EZ Insertion of Endotracheal Airway into Trachea, Via Natural or Artificial Opening (ICD-10-PCS; 2019-01-21)
PROC: 5A1945Z Respiratory Ventilation, 24-96 Consecutive Hours (ICD-10-PCS; 2019-01-21)
PROC: 02H633Z Insertion of Infusion Device into Right Atrium, Percutaneous Approach (ICD-10-PCS; 2019-01-22)
PROC: B548ZZA Ultrasonography of Superior Vena Cava, Guidance (ICD-10-PCS; 2019-01-22)
DX: A41.9 Sepsis, unspecified organism (principal); J96.21 Acute and chronic respiratory failure with hypoxia; J15.1 Pneumonia due to Pseudomonas; I50.32 Chronic diastolic (congestive) heart failure; J45.901 Unspecified asthma with (acute) exacerbation; J98.11 Atelectasis; J44.1 Chronic obstructive pulmonary disease with (acute) exacerbation; J44.0 Chronic obstructive pulmonary disease with (acute) lower respiratory infection; F17.210 Nicotine dependence, cigarettes, uncomplicated; I11.0 Hypertensive heart disease with heart failure; M19.90 Unspecified osteoarthritis, unspecified site; Z96.612 Presence of left artificial shoulder joint; Z82.49 Family history of ischemic heart disease and other diseases of the circulatory system; Z86.14 Personal history of Methicillin resistant Staphylococcus aureus infection; Z90.710 Acquired absence of both cervix and uterus; Z99.81 Dependence on supplemental oxygen
CPT/HCPCS: 31624; 36415; 36600; 71045; 71275; 80048; 80053; 80061; 80069; 81001; 82040; 82803; 82962; 83036; 83605; 83735; 83880; 84100; 84132; 84145; 84439; 84443; 84478; 84484; 85025; 85379; 87040; 87070; 87077; 87081; 87086; 87186; 87205; 87400; 88108; 88112; 88305; 93005; 93306; 94002; 94003; 94640; 96374; 99285; G0378; J0456; J0696; J0744; J1650; J2250; J2405; J2543; J2704; J3370; J3480; J7613; J7620; P9047; Q9967; J0360; J1200; J1815; J2920; J2930; J3475; J7030; J7040; J7050; J7512; Q0163